=== PATIENT | male | born 1960 | race Two or more races ===

== ENCOUNTER 2022-05-23 10:40 | Inpatient (IN) | payer MEDICAID, OTHER ==
[~2022-05-23] VITALS: Ht 180.3 cm; Wt 98.0 kg
[2022-05-23 11:58] LABS: Albumin 3.6 g/dL (3.4-5.0); Anion Gap 4 (5-15); BUN/Creatinine Ratio 13.9; Blood Urea Nitrogen 19 mg/dL (7-18); Calcium 9.2 mg/dL (8.5-10.1); Carbon Dioxide 28 mmol/L (21-32); Chloride 113 mmol/L (98-107); GFR African American 68 mL/min; GFR Non-African American 56 mL/min; Glucose 99 mg/dL (74-106); Potassium 4.3 mmol/L (3.5-5.1); Sodium 145 mmol/L (136-145)
[2022-05-23 12:06] LABS: Alanine Aminotransferase 63 U/L (16-61); Alkaline Phosphatase 108 U/L (45-117); Aspartate Aminotransferase 49 U/L (15-37); Bilirubin, Total 0.4 mg/dL (0.2-1.0); Total Protein 6.8 g/dL (6.4-8.2)
[2022-05-23] MEDS ORDERED: cloNIDine HCL 0.1 MG TAB PO ONE (12:15)
[2022-05-23] MEDS ORDERED: ENOXAPARIN SOD 100 MG/1 ML SYRINGE SC ONE (12:30)
[2022-05-23 16:19] LABS: Basophils # (auto) 0 10 ^3/uL (0-0.2); Basophils % (auto) 0.4 % (0.0-2.0); Eosinophils # (auto) 0 10 ^3/uL (0-0.8); Hemoglobin 18.2 g/dL (13.5-17.5); Monocytes # (auto) 0.4 10 ^3/uL (0-1.3); Neutrophils # (auto) 1.6 10 ^3/uL (1.6-8.6); Red Cell Distribution Width 14.6 % (11.8-14.3)
[2022-05-23 16:21] LABS: Eosinophils % (auto) 0.8 % (0.0-7.0); Lymphocytes % (auto) 48.7 % (10.0-50.0); Mean Corpuscular Hemoglobin 31.2 pg (28.0-32.0); Mean Corpuscular Hgb Conc. 32.2 g/dL (32.0-36.0); Mean Corpuscular Volume 96.8 fL (80.0-100.0); Monocytes % (auto) 10.1 % (0.0-12.0); Nucleated Red Blood Cells % 0.7 %; Red Blood Cells 5.83 10^6/uL (4.5-5.90)
[2022-05-23 16:28] LABS: Hematocrit 56.4 % (41.0-53.0)
[2022-05-23] MEDS ORDERED: ACETAMINOPHEN 325 MG TAB PO PRN (21:15)
[2022-05-23] MEDS ORDERED: NITROGLYCERIN 0.4 MG SL TAB SL PRN (21:15)
[2022-05-23] MEDS ORDERED: ONDANSETRON HCL 4 MG/2 ML VIAL IV PRN (21:15)
[2022-05-23] MEDS ORDERED: MORPHINE SULFATE INJ 2 MG/ml SYRG IV PRN (21:15)
[2022-05-23] MEDS ORDERED: cloNIDine HCL 0.1 MG TAB PO PRN (21:15)
[2022-05-23] MEDS: ASCORBIC ACID 500 MG TAB PO SCH (23:56)
[2022-05-24] MEDS ORDERED: TEMAZEPAM 15 MG CAP PO ONE (01:45)
[2022-05-24 04:57] VITALS: BP 161/107
[2022-05-24] MEDS ORDERED: LOSA-69 PO (05:42)
[2022-05-24] MEDS ORDERED: MELO1TAB73 PO (05:42)
[2022-05-24 07:15] LABS: BUN/Creatinine Ratio 16.9; Calcium 8.2 mg/dL (8.5-10.1); Potassium 4.4 mmol/L (3.5-5.1)
[2022-05-24 08:17] LABS: Basophils # (auto) 0 10 ^3/uL (0-0.2); Basophils % (auto) 0.5 % (0.0-2.0); Eosinophils # (auto) 0 10 ^3/uL (0-0.8); Hematocrit 50.1 % (41.0-53.0); Hemoglobin 16.4 g/dL (13.5-17.5); Lymphocytes # (auto) 1.6 10 ^3/uL (0.4-5.4); Lymphocytes % (auto) 38.5 % (10.0-50.0); Mean Corpuscular Hemoglobin 31.4 pg (28.0-32.0); Mean Corpuscular Hgb Conc. 32.8 g/dL (32.0-36.0); Mean Corpuscular Volume 95.8 fL (80.0-100.0); Monocytes # (auto) 0.4 10 ^3/uL (0-1.3); Neutrophils # (auto) 2.1 10 ^3/uL (1.6-8.6); Nucleated Red Blood Cells % 0.3 %; Red Blood Cells 5.23 10^6/uL (4.5-5.90); Red Cell Distribution Width 14.5 % (11.8-14.3); White Blood Cell 4.2 10^3/uL (4.4-10.8)
[2022-05-24 09:00] VITALS: BP 139/85
[2022-05-24] MEDS: ASCORBIC ACID 500 MG TAB PO SCH (09:06)
[2022-05-24] MEDS ORDERED: LOSARTAN POTASSIUM 50 MG TAB PO SCH (10:00)
[2022-05-24] MEDS ORDERED: ZINC SULFATE 220mg CAP or TAB PO SCH (10:00)
[2022-05-24] MEDS ORDERED: amLODIPine BESYLATE 5 MG TAB PO SCH (10:00)
[2022-05-24] MEDS ORDERED: PANTOPRAZOLE 40 MG TAB PO SCH (10:00)
[2022-05-24] MEDS ORDERED: ENOXAPARIN SOD 40 MG/0.4 ML SYRINGE SC SCH (10:00)
[2022-05-24 13:00] VITALS: BP 144/93
== END 2022-05-24 15:17 | disposition left against medical advice (07) | DRG 199 ==
LOC: ER 10:40 → TELE 21:19 → TELE-WESTW 05-24 03:40
PROVIDERS: ADMIT Nurse Practitioner; ATTEND Internal Medicine
DX: I16.0 Hypertensive urgency (principal); U07.1 COVID-19; N18.9 Chronic kidney disease, unspecified; F41.9 Anxiety disorder, unspecified; I12.9 Hypertensive chronic kidney disease with stage 1 through stage 4 chronic kidney disease, or unspecified chronic kidney disease; Z53.29 Procedure and treatment not carried out because of patient's decision for other reasons
CPT/HCPCS: 36415; 71045; 80048; 80053; 83880; 84484; 85025; 85379; 87426; 96372; G0378